=== PATIENT | female | born 1945 | race Caucasian/White ===

== ENCOUNTER 2018-07-21 10:40 | Emergency (ER) | payer MEDICARE, BC ==
--- NOTE | 2018-07-21 13:12 | CR ---
CHEST: Portable CLINICAL HISTORY:Chest tightness COMPARISON:2011 FINDINGS: The heart size, pulmonary vascular and hilar structures are normal. No infiltrate effusion or pneumothorax is seen. IMPRESSION: No acute cardiopulmonary process
--- NOTE | 2018-07-21 13:57 | EDM.PDOC ---
ED HPI GENERAL MEDICAL PROBLEM - General Chief Complaint: General Stated Complaint: CHEST PAINS Time Seen by Provider: 07/21/18 11:55 Source of Information: Reports: Patient History Limitations: Reports: No Limitations - History of Present Illness INITIAL COMMENTS - FREE TEXT/NARRATIVE: pt arrived with a episode of feeling liteheaded and some different sensation in the chest. pt has felt stuffed up and has had evidence of nasal congestion Onset: Today, Other (pt was at [employer] and did feel quite liteheaded and s different sensation in her chest. She does have a history of frequent pacs. ) Duration: Hour(s): Location: Reports: Head, Chest, Generalized, Other (pt did feel lite headed. ) Associated Symptoms: Reports: Weakness, Other (pt was liteheaded. ) - Related Data Allergies Allergy/AdvReac Type Severity Reaction Status Date / Time No Known Allergies Allergy Verified 07/21/18 11:46 Home Meds: Home Meds Aspirin [Children's Aspirin] 81 mg PO DAILY 02/28/15 [History] Bimatoprost [LUMIGAN 0.01% Ophth Soln] 1 drop EYEBOTH QPM 02/28/15 [History] Calcitonin ([place]) [Miacalcin Nasal [place]] 1 spray NS DAILY 02/28/15 [History] Calcium Carbonate/Vitamin D3 [Calcium 1,000 + D3 Caplet] 1 tab PO TID 02/28/15 [ History] Omeprazole [priLOSEC OTC] 20 mg PO DAILY PRN 02/28/15 [History] Estradiol [Estrace 0.01% Vaginal Crm] 1 applic VAG WEEKLY 07/21/18 [History] Past Medical History Cardiovascular History: Reports: High Cholesterol Gastrointestinal History: Reports: GERD 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 Not actual pain. ) HEENT: Reports: Rhinitis Respiratory: Reports: No Symptoms Cardiovascular: Reports: Lightheadedness Endocrine: Reports: No Symptoms GI/Abdominal: Reports: No Symptoms : Reports: No Symptoms Musculoskeletal: Reports: No Symptoms Skin: Reports: No Symptoms Neurological: Reports: No Symptoms ED EXAM, GENERAL - Physical Exam Exam: See Below Free Text/Narrative:: pt appeared pale and tired. She stated that she had been at [employer] and was liteheaded and she had a different sensation in her chest. She did not feel like her heart was rapid. Exam Limited By: No Limitations General Appearance: Alert, Mild Distress, Other (pupils are equal and reactive. ) Ears: Normal TMs Nose: Normal Inspection Throat/Mouth: Normal Inspection Head: Atraumatic Neck: Normal Inspection Respiratory/Chest: No Respiratory Distress Cardiovascular: Regular Rate, Rhythm, Other ( pt had a ekg which did not show acute findings. ) GI/Abdominal: Soft, Non-Tender (Female) Exam: Deferred Rectal (Female) Exam: Deferred Back Exam: Normal Inspection Extremities: Normal Inspection Neurological: Alert, Oriented, Normal Cognition Psychiatric: Normal Affect Course - Vital Signs Last Recorded V/S: Last Vital Signs Temp 36.3 C 07/21/18 11:55 Pulse 72 07/21/18 11:55 Resp 13 07/21/18 11:55 BP 138/57 L 07/21/18 11:55 Pulse Ox 99 07/21/18 11:55 Orthostatic Blood Pressure [ 128/64 Standing] Orthostatic Blood Pressure [ 121/57 Sitting] Orthostatic Blood Pressure [ 130/60 Supine] - Orders/Labs/Meds Orders: Active Orders 24 hr Category Date Time Status EKG Documentation Completion [RC] ASDIRECTED Care 07/21/18 12:09 Active Orthostatic Vital Signs [RC] ASDIRECTED Care 07/21/18 13:18 Active EKG 12 Lead [EK] Routine Ther 07/21/18 12:08 Ordered Labs: Laboratory Tests 07/21/18 07/21/18 07/21/18 Range/Units 12:12 12:17 12:17 WBC 7.7 (4.5-11.0) K/uL RBC 4.99 (3.30-5.50) M/uL Hgb 13.8 (12.0-15.0) g/dL Hct 41.6 (36.0-48.0) % MCV 83 (80-98) fL MCH 28 (27-31) pg MCHC 33 (32-36) % Plt Count 279 (150-400) K/uL Neut % (Auto) 59 (36-66) % Lymph % (Auto) 26 (24-44) % [place] % (Auto) 11 H (2-6) % Eos % (Auto) 4 (2-4) % Baso % (Auto) 0 (0-1) % Sodium (140-148) mmol/L Potassium (3.6-5.2) mmol/L Chloride (100-108) mmol/L Carbon Dioxide (21-32) mmol/L Anion Gap (5.0-14.0) mmol/L BUN (7-18) mg/dL Creatinine (0.6-1.0) mg/dL Est Cr Clr Drug Dosing mL/min Estimated GFR (MDRD) (>60) Glucose (74-106) mg/dL Calcium (8.5-10.1) mg/dL Total Bilirubin (0.2-1.0) mg/dL AST (15-37) U/L ALT (12-78) U/L Alkaline Phosphatase (46-116) U/L Troponin I < 0.017 (0.000-0.056) ng/mL C-Reactive Protein (0.0-0.3) mg/dL Total Protein (6.4-8.2) g/dL Albumin (3.4-5.0) g/dL Globulin (2.3-3.5) g/dL Albumin/Globulin Ratio (1.2-2.2) Urine Color Yellow Urine Appearance Clear Urine pH 6.0 (4.5-8.0) Ur Specific [place] 1.005 L (1.008-1.030) Urine Protein Negative (NEGATIVE) mg/dL Urine Glucose (UA) Normal (NEGATIVE) mg/dL Urine Ketones Negative (NEGATIVE) mg/dL Urine Occult Blood Negative (NEGATIVE) Urine Nitrite Negative (NEGATIVE) Urine Bilirubin Negative (NEGATIVE) Urine Urobilinogen Normal (NORMAL) mg/dL Ur Leukocyte Esterase Negative (NEGATIVE) Urine RBC 0-5 (0-5) Urine WBC 0-5 (0-5) Ur Epithelial Cells Few Amorphous Sediment Rare Urine Bacteria Not seen Urine Mucus Not seen 07/21/18 07/21/18 Range/Units 12:17 13:00 WBC (4.5-11.0) K/uL RBC (3.30-5.50) M/uL Hgb (12.0-15.0) g/dL Hct (36.0-48.0) % MCV (80-98) fL MCH (27-31) pg MCHC (32-36) % Plt Count (150-400) K/uL Neut % (Auto) (36-66) % Lymph % (Auto) (24-44) % [place] % (Auto) (2-6) % Eos % (Auto) (2-4) % Baso % (Auto) (0-1) % Sodium 141 (140-148) mmol/L Potassium 3.8 (3.6-5.2) mmol/L Chloride 105 (100-108) mmol/L Carbon Dioxide 27 (21-32) mmol/L Anion Gap 8.7 (5.0-14.0) mmol/L BUN 21 H (7-18) mg/dL Creatinine 0.9 (0.6-1.0) mg/dL Est Cr Clr Drug Dosing 49.51 mL/min Estimated GFR (MDRD) > 60 (>60) Glucose 99 (74-106) mg/dL Calcium 9.1 (8.5-10.1) mg/dL Total Bilirubin 0.5 (0.2-1.0) mg/dL AST 20 (15-37) U/L ALT 21 (12-78) U/L Alkaline Phosphatase 103 (46-116) U/L Troponin I (0.000-0.056) ng/mL C-Reactive Protein 0.53 H (0.0-0.3) mg/dL Total Protein 7.3 (6.4-8.2) g/dL Albumin 3.5 (3.4-5.0) g/dL Globulin 3.8 H (2.3-3.5) g/dL Albumin/Globulin Ratio 0.9 L (1.2-2.2) Urine Color Urine Appearance Urine pH (4.5-8.0) Ur Specific [place] (1.008-1.030) Urine Protein (NEGATIVE) mg/dL Urine Glucose (UA) (NEGATIVE) mg/dL Urine Ketones (NEGATIVE) mg/dL Urine Occult Blood (NEGATIVE) Urine Nitrite (NEGATIVE) Urine Bilirubin (NEGATIVE) Urine Urobilinogen (NORMAL) mg/dL Ur Leukocyte Esterase (NEGATIVE) Urine RBC (0-5) Urine WBC (0-5) Ur Epithelial Cells Amorphous Sediment Urine Bacteria Urine Mucus - Re-Assessments/Exams Free Text/Narrative Re-Assessment/Exam: 07/21/18 14:07 pt had a normal ekg, her trop was normal. Her orthostatics were good, her labs otherwise was good. Her chest xray did not show any infiltrates. Departure - Departure Time of Disposition: 13:56 Disposition: Home, Self-Care 01 Condition: Fair Clinical Impression: Viral respiratory illness - Discharge Information Instructions: Viral Respiratory Infection, [id number] Referrals: Lonny Cheatham MD [Primary Care Provider] - Forms: ED Department Discharge Care Plan Goals: push fluids rest rtc if any further chest sensation. - My Orders Last 24 Hours: My Active Orders 07/21/18 12:08 EKG 12 Lead [EK] Routine 07/21/18 12:09 EKG Documentation Completion [RC] ASDIRECTED 07/21/18 13:18 Orthostatic Vital Signs [RC] ASDIRECTED - Assessment/Plan Last 24 Hours: My Active Orders 07/21/18 12:08 EKG 12 Lead [EK] Routine 07/21/18 12:09 EKG Documentation Completion [RC] ASDIRECTED 07/21/18 13:18 Orthostatic Vital Signs [RC] ASDIRECTED
== END 2018-07-21 14:10 | disposition home or self-care (01) ==
LOC: JP.ED 10:40
DX: B34.9 Viral infection, unspecified (principal); Z79.82 Long term (current) use of aspirin; Z79.899 Other long term (current) drug therapy
CPT/HCPCS: 36415; 71045; 71045-26; 80053; 81001; 84484; 85025; 86140; 93005; 99285-25

== ENCOUNTER 2018-12-16 09:05 | Emergency (ER) | payer MEDICARE, BC ==
--- NOTE | 2018-12-16 10:10 | EDM.PDOC ---
ED HPI GENERAL MEDICAL PROBLEM - General Chief Complaint: Cardiovascular Problem Stated Complaint: HEART BEAT IS NOT REGULAR Time Seen by Provider: 12/16/18 09:54 Source of Information: Reports: Patient, Family, RN Notes Reviewed History Limitations: Reports: No Limitations - History of Present Illness INITIAL COMMENTS - FREE TEXT/NARRATIVE: 73-year-old female presents emergency department today complaint of palpitations. She states she's had palpitations for about a month she's noticed the palpitations will come after eating she does have early satiety. She has checked her pulse with the palpitations rate seems to be 80 but there is some regular pattern, no nausea some shortness of breath she does admit to anxiety which may be contributing to her problem. She has used Prilosec in the past but use used as a when necessary basis - Related Data Allergies Allergy/AdvReac Type Severity Reaction Status Date / Time No Known Allergies Allergy Verified 12/16/18 09:39 Home Meds: Home Meds Bimatoprost [LUMIGAN 0.01% Ophth Soln] 1 drop EYEBOTH QPM 02/28/15 [History] Calcitonin ([place]) [Miacalcin Nasal [place]] 1 spray NS DAILY 02/28/15 [History] Calcium Carbonate/Vitamin D3 [Calcium 1,000 + D3 Caplet] 1 tab PO TID 02/28/15 [ History] Omeprazole [priLOSEC OTC] 20 mg PO DAILY PRN 02/28/15 [History] Dorzolamide HCl/Timolol Maleat [Dorzolamide-Timolol Eye Drops] 1 drop TOP DAILY 12/16/18 [History] Nitrofurantoin [place]/Macrocryst [Nitrofurantoin [place]-MCR] 100 mg PO BID #14 cap 12/16/18 [Rx] Propranolol [Inderal] 10 mg PO TID PRN #30 tablet 12/16/18 [Rx] Past Medical History HEENT History: Reports: Glaucoma Cardiovascular History: Reports: High Cholesterol Gastrointestinal History: Reports: GERD 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: Musculoskeletal History: Reports: Osteoporosis Psychiatric History: Reports: Anxiety - Past Surgical History GI Surgical History: Reports: Colonoscopy Female Surgical History: Reports: Hysterectomy, Salpingo-Oophorectomy Social & Family History - Tobacco Use Smoking Status *Q: Never Smoker - Caffeine Use Caffeine Use: Reports: Other Caffeine Use Comment: chocolete - Recreational Drug Use Recreational Drug Use: No ED ROS GENERAL - Review of Systems Review Of Systems: See Below Constitutional: Reports: No Symptoms HEENT: Reports: No Symptoms Respiratory: Reports: Shortness of Breath Cardiovascular: Reports: Chest Pain (Upper left side) GI/Abdominal: Reports: Decreased Appetite : Reports: Frequency, Urinary Retention Musculoskeletal: Reports: No Symptoms Skin: Reports: No Symptoms Psychiatric: Reports: Anxiety, Other (Stress social situation) Hematologic/Lymphatic: Reports: No Symptoms ED EXAM, GENERAL - Physical Exam Exam: See Below Free Text/Narrative:: General: Female, not in any distress, alert and oriented x3 HEENT: head is atraumatic normocephalic, eyes pupils equal round reactive to light, sclera clear no conjunctivitis appreciated. Ears tympanic membrane clear and kahn on the left blocked by cerumen on the right. Nose no septal deviation, nares are clear, no blood present. Mouth mucosa is moist and pink no erythema or exudate noted in soft palate, tongue is midline uvula is midline noted uvula is small, dentition is intact. Neck: Supple no thyromegaly no tracheal deviation. Nodes: Cervical nodes subclavicular nodes nontender no palpable lymphadenopathy noted. Lungs: clear to auscultation bilaterally with symmetrical respirations, no adventitious noise appreciated. CV: Regular rate and rhythm S1 and S2 appreciated no murmurs rubs or gallops noted. Abdomen: Soft, nontender, no palpable masses or organomegaly appreciated, no distention no guarding bowel sounds are present. Neuro: GCS 15 Skin: Warm and dry, intact Extremities: No lower extremity edema appreciated, pedal pulse is +2. Course - Vital Signs Last Recorded V/S: Last Vital Signs Temp 96.2 F 12/16/18 09:38 Pulse 67 12/16/18 10:57 Resp 16 12/16/18 10:57 BP 139/69 12/16/18 10:57 Pulse Ox 98 12/16/18 10:57 - Orders/Labs/Meds Orders: Active Orders 24 hr Category Date Time Status Cardiac Monitoring [RC] .As Directed Care 12/16/18 10:05 Active EKG Documentation Completion [RC] ASDIRECTED Care 12/16/18 10:06 Active CULTURE URINE [RM] Urgent Lab 12/16/18 11:26 Ordered EKG 12 Lead [EK] Stat Ther 12/16/18 10:05 Ordered Labs: Laboratory Tests 12/16/18 12/16/18 12/16/18 Range/Units 10:07 10:23 10:23 WBC 6.5 (4.5-11.0) K/uL RBC 5.06 (3.30-5.50) M/uL Hgb 13.9 (12.0-15.0) g/dL Hct 43.1 (36.0-48.0) % MCV 85 (80-98) fL MCH 28 (27-31) pg MCHC 32 (32-36) % Plt Count 282 (150-400) K/uL Neut % (Auto) 52 (36-66) % Lymph % (Auto) 34 (24-44) % [place] % (Auto) 10 H (2-6) % Eos % (Auto) 3 (2-4) % Baso % (Auto) 1 (0-1) % Sodium 139 L (140-148) mmol/L Potassium 4.1 (3.6-5.2) mmol/L Chloride 104 (100-108) mmol/L Carbon Dioxide 28 (21-32) mmol/L Anion Gap 11.1 (5.0-14.0) mmol/L BUN 15 (7-18) mg/dL Creatinine 1.0 (0.6-1.0) mg/dL Est Cr Clr Drug Dosing 43.91 mL/min Estimated GFR (MDRD) 55 L (>60) Glucose 85 (74-106) mg/dL Calcium 8.9 (8.5-10.1) mg/dL Total Bilirubin 0.5 (0.2-1.0) mg/dL AST 16 (15-37) U/L ALT 18 (12-78) U/L Alkaline Phosphatase 89 (46-116) U/L CK-MB (CK-2) 0.7 (0-3.6) mg/mL Troponin I < 0.017 (0.000-0.056) ng/mL Total Protein 7.3 (6.4-8.2) g/dL Albumin 3.5 (3.4-5.0) g/dL Globulin 3.8 H (2.3-3.5) g/dL Albumin/Globulin Ratio 0.9 L (1.2-2.2) Urine Color Yellow (YELLOW) Urine Appearance Slightly cloudy A (CLEAR) Urine pH 6.5 (5.0-8.0) Ur Specific [place] 1.010 (1.008-1.030) Urine Protein Negative (NEGATIVE) mg/dL Urine Glucose (UA) Normal (NEGATIVE) mg/dL Urine Ketones Negative (NEGATIVE) mg/dL Urine Occult Blood Negative (NEGATIVE) Urine Nitrite Negative (NEGATIVE) Urine Bilirubin Negative (NEGATIVE) Urine Urobilinogen Normal (0.2-1.0) EU/dL Ur Leukocyte Esterase Small (NEGATIVE) Urine RBC Not seen (0-5) Urine WBC 10-20 H (0-5) Ur Epithelial Cells Rare Amorphous Sediment Not seen Urine Bacteria Few Urine Mucus Not seen Departure - Departure Time of Disposition: 11:35 Disposition: Home, Self-Care 01 Condition: Fair Clinical Impression: Palpitations Urinary tract infection Qualifiers: Urinary tract infection type: acute cystitis Hematuria presence: without hematuria Qualified Code(s): N30.00 - Acute cystitis without hematuria Instructions: Urinary Tract Infection, Adult Referrals: Lonny Cheatham MD [Primary Care Provider] - Forms: ED Department Discharge Additional Instructions: Take full course of antibiotics, urine culture has been done will take 3 or 4 days to complete, try the propranolol as needed for palpitations, consultation has been set up with Dr. Cisneros please call to the [facility] in the morning for an appointment time, your medications have been faxed to [facility] pharmacy, call return to the emergency department worsening of symptoms - My Orders Last 24 Hours: My Active Orders 12/16/18 10:05 Cardiac Monitoring [RC] .As Directed EKG 12 Lead [EK] Stat 12/16/18 10:06 EKG Documentation Completion [RC] ASDIRECTED 12/16/18 11:26 CULTURE URINE [RM] Urgent - Assessment/Plan Last 24 Hours: My Active Orders 12/16/18 10:05 Cardiac Monitoring [RC] .As Directed EKG 12 Lead [EK] Stat 12/16/18 10:06 EKG Documentation Completion [RC] ASDIRECTED 12/16/18 11:26 CULTURE URINE [RM] Urgent Plan: Assessment Acuity = acute Site and laterality = urinary tract infection, palpitations Etiology = suspicious for bacterial cause for urinary tract infection, palpitations unclear etiology Manifestations = none Location of injury = Home Lab values = CBC, CMP, CK-MB, troponin within normal limits EKG demonstrates normal sinus rhythm chest x-ray shows no acute process per radiology. Plan For her urinary tract infection treated with Macrobid 100 mg by mouth twice a day 7 days, for her palpitations she is can try propranolol 10 mg by mouth 3 times a day when necessary total #30, she does have reflux type symptoms consultation has been set up with Dr. Cisneros for next week This note was dictated using Plango voice recognition software please call with any questions on syntax or grammar.
--- NOTE | 2018-12-16 10:52 | CR ---
CHEST: 2 view CLINICAL HISTORY:Chest pain COMPARISON:July 2018 FINDINGS: The heart size, pulmonary vascular and hilar structures are normal. No infiltrate effusion or pneumothorax is seen. IMPRESSION: No acute cardiopulmonary process.
== END 2018-12-16 11:59 | disposition home or self-care (01) ==
LOC: JP.ED 09:05
DX: R00.2 Palpitations (principal); N30.00 Acute cystitis without hematuria; K21.9 Gastro-esophageal reflux disease without esophagitis; Z79.899 Other long term (current) drug therapy
CPT/HCPCS: 36415; 71046; 71046-26; 80053; 81001; 82553; 84484; 85025; 87086; 87088; 87186; 93005; 99285-25

== ENCOUNTER 2019-01-01 07:16 | Day surgery (SDC) | payer MEDICARE, BC ==
[2019-01-01] MEDS ORDERED: Midazolam 1 MG/ML 2 ML SDV ONE (07:27)
[2019-01-01] MEDS ORDERED: Propofol 200 MG/20 ML SDV ONE (07:27)
[2019-01-01] MEDS ORDERED: fentaNYL 100 MCG/2 ML SDV ONE (07:27)
[2019-01-01] MEDS ORDERED: Sodium Chloride 0.9% 1,000 ML IV SCH (07:45)
--- NOTE | 2019-01-01 10:54 | OR ---
DATE OF PROCEDURE: 01/01/2019 SURGEON: Keith Cisneros MD PROCEDURE: Esophagogastroduodenoscopy with dilation to 45-[place], stage II. COMPLICATIONS: None. WILDLIFE REFUGE SPECIALIST: None. PREOPERATIVE DIAGNOSES: Dysphagia and esophagogastric junction outflow obstruction. POSTOPERATIVE DIAGNOSIS: Dysphagia and esophagogastric junction outflow obstruction. COMPLICATIONS: None. WILDLIFE REFUGE SPECIALIST: None. ANESTHESIA: MAC. PROCEDURE IN DETAIL: The patient was placed in left lateral decubitus position. EGD scope was introduced and advanced atraumatically to second part of the duodenum. No evidence of duodenitis or ulceration. Within the stomach itself, no evidence of ulceration or abnormality. The GE junction did not show any significant disease processes. The 36 balloon was introduced and dilated. This did not occlude the lumen. Therefore, it was advanced to a 45- [place] balloon, dilated to stage II. This was held for approximately 30 seconds. This was removed. The esophagus was inspected. No abnormalities were noted. The patient tolerated the procedure well. Keith Cisneros MD /[id number]
== END 2019-01-01 10:30 | disposition home or self-care (01) ==
LOC: JP.SDS 07:16
PROVIDERS: ATTEND Surgery
DX: K22.2 Esophageal obstruction (principal); K21.9 Gastro-esophageal reflux disease without esophagitis; E78.5 Hyperlipidemia, unspecified; M81.0 Age-related osteoporosis without current pathological fracture; Z88.1 Allergy status to other antibiotic agents
CPT/HCPCS: 43233; J2250; J2704; J3010; J7030

== ENCOUNTER 2022-02-02 18:46 | Emergency (ER) | payer MEDICARE, BC ==
[2022-02-02] MEDS ORDERED: Sodium Chloride 0.9% 10 ML Syringe FLUSH PRN (19:33)
[2022-02-02] MEDS ORDERED: Ketorolac 30 MG/ML SDV IVPUSH ONE (19:33)
[2022-02-02] MEDS ORDERED: HYDROmorphone 0.5 MG/0.5 ML Syringe IVPUSH ONE (19:33)
[2022-02-02] MEDS ORDERED: methylPREDNISolone Sodium Succinate 125 MG/2 ML SDV IVPUSH ONE (20:55)
== END 2022-02-02 21:30 | disposition home or self-care (01) ==
LOC: JP.ED 18:46
DX: M54.50 Low back pain, unspecified (principal); Z88.2 Allergy status to sulfonamides; Z79.899 Other long term (current) drug therapy; Z90.710 Acquired absence of both cervix and uterus
CPT/HCPCS: 72192; 96374; 96375; 99283; J1170; J1885; J2930; J3490